=== PATIENT | female | born 1980 | race Caucasian/White ===

== ENCOUNTER → 2017-09-04 | Outpatient (CLI) | payer BC | LOC: M CARPUL 08:00 | DX: M33.90 Dermatopolymyositis, unspecified, organ involvement unspecified (principal) ==

== ENCOUNTER → 2018-03-13 | Outpatient (REF) | payer BC | LOC: M LAB REF 18:54 | DX: N76.0 Acute vaginitis (principal) ==

== ENCOUNTER → 2018-12-06 | Outpatient (REF) | payer BC | LOC: M LAB REF 12:52 | DX: B37.3 Candidiasis of vulva and vagina (principal) ==

== ENCOUNTER 2019-06-21 21:15 | Emergency (ER) | payer OTHER, BC ==
[~2019-06-21] VITALS: Ht 157.5 cm; Wt 79.5 kg
[2019-06-21 21:22] VITALS: BP 115/65
[2019-06-21] MEDS ORDERED: TETANUS/DIPHTHERIA TOX ADSORB ADULT 0.5ML SYR/VIAL (90714) IM ONE (22:15)
[2019-06-21] MEDS ORDERED: MYCO500T PO (22:42)
--- NOTE | 2019-06-22 07:52 | REP ---
Right knee five views : There is no fracture or dislocation. Mineralization and joint spaces are normal. There are no calcifications or foreign bodies. There is questionably a suprapatellar effusion. Impression: Questionable suprapatellar effusion, otherwise, negative right knee . Electronically Signed by Malcom Tolentino MD 06/22/2019 07:44 A
== END 2019-06-21 22:32 | disposition home or self-care (01) ==
LOC: M ED 21:15
DX: S80.01XA Contusion of right knee, initial encounter (principal); S80.211A Abrasion, right knee, initial encounter; W01.0XXA Fall on same level from slipping, tripping and stumbling without subsequent striking against object, initial encounter; Y92.89 Other specified places as the place of occurrence of the external cause; Y99.0 Civilian activity done for income or pay; I73.00 Raynaud's syndrome without gangrene; M33.90 Dermatopolymyositis, unspecified, organ involvement unspecified

== ENCOUNTER → 2019-08-21 | Outpatient (CLI) | payer BC ==
[~2019-08-21] MED LIST: MYCO500T PO
[2019-08-21 17:06] LABS: BASO % 0.2 % (0.0-1.0); EOS # 0.2 10^3/uL (0.0-0.5); EOS % 3.2 % (0.0-3.0); HEMATOCRIT 42.9 % (36.0-47.0); HEMOGLOBIN 13.3 g/dl (12.0-15.5); LYMPH % 17.7 % (24.0-44.0); MEAN CORPUSCULAR HEMOGLOBIN 29.3 pg (27.0-33.0); MEAN CORPUSCULAR VOLUME 94.5 fl (80.0-96.0); MONO # 0.8 10^3/uL (0.0-0.8); MONO % 13.5 % (0.0-5.0); NEUTROPHILS # 3.7 10^3/uL (1.5-8.5); PLATELET COUNT, AUTOMATED 250 10^3/uL (150-450); RED BLOOD COUNT 4.54 10^6/uL (4.00-5.40); WHITE BLOOD COUNT 5.6 10^3/uL (4.0-10.0)
[2019-08-21 17:11] LABS: ALT/SGPT 30 U/L (12-78); C REACTIVE PROTEIN QUANTITATIV 0.41 MG/DL (0.00-0.30); CPK CREATINE PHOSPHOKINASE 368 U/L (26-192); CREATININE FOR GFR 0.75 MG/DL (0.55-1.30); GLOMERULAR FILTRATION RATE > 60.0 (>58)
[2019-08-21 17:56] LABS: ERYTHROCYTE SEDIMENTATION RATE 11 mm/hr (0-20)
== END ==
LOC: M WUC 12:18
PROVIDERS: ATTEND Nurse Practitioner
DX: Z79.899 Other long term (current) drug therapy (principal); M33.90 Dermatopolymyositis, unspecified, organ involvement unspecified

== ENCOUNTER → 2020-08-17 | Outpatient (CLI) | payer SELFPAY | LOC: M LABSMTC 09:42 | PROVIDERS: ATTEND Pediatrics | DX: Z20.828 Contact with and (suspected) exposure to other viral communicable diseases (principal) ==

== ENCOUNTER → 2020-11-29 | Outpatient (REF) | payer BC | LOC: M LAB REF 17:40 | PROVIDERS: ATTEND Physician Assistant | DX: R30.0 Dysuria (principal) ==

== ENCOUNTER → 2021-03-01 | Outpatient (CLI) | payer BC | LOC: M WHC 10:19 | PROVIDERS: ATTEND Advanced Practice Midwife | DX: Z12.31 Encounter for screening mammogram for malignant neoplasm of breast (principal) ==

== ENCOUNTER → 2022-06-08 | Outpatient (CLI) | payer BC | LOC: M CARPUL 07:27 | PROVIDERS: ATTEND Nurse Practitioner Family | DX: R60.0 Localized edema (principal) ==

== ENCOUNTER → 2022-08-11 | Outpatient (CLI) | payer BC ==
[2022-08-11 16:31] LABS: BASO % 0.3 % (0.0-1.0); EOS # 0.2 10^3/uL (0.0-0.5); EOS % 3.2 % (0.0-3.0); HEMATOCRIT 43.9 % (36.0-47.0); LYMPH # 1.3 10^3/uL (1.5-5.0); LYMPH % 16.9 % (24.0-44.0); MEAN CORPUSCULAR HEMOGLOBIN 30.9 pg (27.0-33.0); MEAN CORPUSCULAR HGB CONC 31.9 g/dl (32.0-36.5); MEAN CORPUSCULAR VOLUME 96.9 fl (80.0-96.0); MONO # 0.6 10^3/uL (0.0-0.8); MONO % 7.8 % (2.0-8.0); NEUTROPHILS # 5.4 10^3/uL (1.5-8.5); NEUTROPHILS % 71.4 % (36.0-66.0); PLATELET COUNT, AUTOMATED 241 10^3/uL (150-450); RED BLOOD COUNT 4.53 10^6/uL (4.00-5.40); WHITE BLOOD COUNT 7.6 10^3/uL (4.0-10.0)
[2022-08-11 16:53] LABS: ALT/SGPT 14 U/L (7.0-40); AST/SGOT 33 U/L (<34); BLOOD UREA NITROGEN 14 MG/DL (9-23); CPK CREATINE PHOSPHOKINASE 223 U/L (34-145); CREATININE FOR GFR 0.68 MG/DL (0.55-1.30); GLOMERULAR FILTRATION RATE > 60.0 (>58)
[2022-08-11 16:58] LABS: ERYTHROCYTE SEDIMENTATION RATE 23 mm/hr (0-20)
== END ==
LOC: M WUC 13:07
PROVIDERS: ATTEND Nurse Practitioner Family
DX: M33.90 Dermatopolymyositis, unspecified, organ involvement unspecified (principal)